=== PATIENT | female | born 1955 | race Two or more races ===

== ENCOUNTER 2023-07-15 11:45 | Inpatient (IN) | payer OTHER ==
[~2023-07-15] VITALS: Ht 167.6 cm; Wt 96.2 kg
[2023-07-15] MEDS ORDERED: HUMULIN 70100 UNIT/2 (13:55)
[2023-07-15] MEDS ORDERED: ZESTRIL2.5 MG (13:56)
[2023-07-15] MEDS ORDERED: TOPROL XL25 M1 (13:56)
[2023-07-15] MEDS ORDERED: ATORVASTATIN CA40 MG (13:57)
[2023-07-17] MEDS ORDERED: METFORMIN HCL500 M4 (10:31)
[2023-07-17] MEDS ORDERED: ROSUVASTATIN CA20 MG (10:31)
[2023-07-17 17:33] LABS: HEMOGLOBIN 12.2 g/dL (12.0-15.00); MEAN CORPUSCULAR HEMOGLOBIN 29.1 pg (27.00-32.0); MEAN CORPUSCULAR HGB CONC 33.1 g/dl (32.0-36.0); PLATELET COUNT 234 K/uL (150-450); RED BLOOD COUNT 4.21 M/uL (4.00-6.00); RED CELL DISTRIBUTION WIDTH 13.8 % (11.5-14.5)
[2023-07-17 17:53] LABS: CALCIUM 9.1 mg/dL (8.5-10.1); CREATININE SERUM 0.88 mg/dL (0.55-1.02); GFR 63.71; POTASSIUM 4.27 mEq/L (3.5-5.1)
[2023-07-18 06:22] LABS: HEMATOCRIT 31.8 % (36.0-45.00); HEMOGLOBIN 10.8 g/dL (12.0-15.00); MEAN CORPUSCULAR HEMOGLOBIN 29.3 pg (27.00-32.0); PLATELET COUNT 206 K/uL (150-450); RED CELL DISTRIBUTION WIDTH 13.5 % (11.5-14.5)
[2023-07-18 07:04] LABS: CALCIUM 8.6 mg/dL (8.5-10.1); CREATININE SERUM 0.8 mg/dL (0.55-1.02); GFR 71.12; POTASSIUM 4.21 mEq/L (3.5-5.1)
== END 2023-07-19 14:31 | disposition home or self-care (01) | DRG 743 ==
LOC: O/R 07-17 05:20 → SURG 07-17 10:15
PROVIDERS: Obstetrics & Gynecology; ADMIT Obstetrics & Gynecology Gynecologic Oncology; ATTEND Obstetrics & Gynecology Gynecologic Oncology
PROC: 0UT74ZZ Resection of Bilateral Fallopian Tubes, Percutaneous Endoscopic Approach (ICD-10-PCS; 2023-07-17)
PROC: 0UT24ZZ Resection of Bilateral Ovaries, Percutaneous Endoscopic Approach (ICD-10-PCS; 2023-07-17)
PROC: 07BC4ZZ Excision of Pelvis Lymphatic, Percutaneous Endoscopic Approach (ICD-10-PCS; 2023-07-17)
PROC: 0UTC4ZZ Resection of Cervix, Percutaneous Endoscopic Approach (ICD-10-PCS; 2023-07-17)
PROC: 0UT94ZZ Resection of Uterus, Percutaneous Endoscopic Approach (ICD-10-PCS; principal; 2023-07-17 10:15)
DX: D25.1 Intramural leiomyoma of uterus (principal); D25.2 Subserosal leiomyoma of uterus; N84.0 Polyp of corpus uteri; N72 Inflammatory disease of cervix uteri; Z20.822 Contact with and (suspected) exposure to COVID-19